=== PATIENT | male | born 1970 | race Caucasian/White ===

== ENCOUNTER 2023-09-22 06:21 | Day surgery (SDC) | payer OTHER ==
[~2023-09-22] VITALS: Ht 172.7 cm; Wt 88.5 kg
[2023-09-22] MEDS ORDERED: fentaNYL citrate 0.05 MG/ML VIAL ONE (07:23)
[2023-09-22] MEDS: fentaNYL citrate 0.05 MG/ML VIAL IVP ONE (07:53)
[2023-09-22] MEDS: LIDOCAINE 2% 100 MG/5 ML UJET TP ONE (08:02)
== END 2023-09-22 08:42 | disposition home or self-care (01) ==
LOC: MDS 06:21 → MMU 06:29 → MDS 08:42
PROVIDERS: ATTEND Internal Medicine Gastroenterology
DX: Z12.11 Encounter for screening for malignant neoplasm of colon (principal); D12.7 Benign neoplasm of rectosigmoid junction; I10 Essential (primary) hypertension; E03.9 Hypothyroidism, unspecified; E11.9 Type 2 diabetes mellitus without complications; Z79.899 Other long term (current) drug therapy
CPT/HCPCS: 45385; 82948; J3010